=== PATIENT | female | born 1985 | race Two or more races ===

== ENCOUNTER 2025-02-05 10:57 | Observation (INO) | payer MEDICAID ==
[2025-02-05] MEDS ORDERED: METF-370 PO (12:39)
--- NOTE | 2025-02-05 12:41 | DVHDS2 ---
Physician Discharge Progress N Final Diagnosis: 31wks gdm Operations or Procedures: Operations or Procedures nst reactive reviwed,sono Condition on Discharge: Good Disposition: Home Discharge Instructions: Diet: Regular, Consistent carbohydrate Activity: No Restrictions, As Tolerated Medications: na Follow Up Care: Specialist: 4d Discharge Statement: "Patient was advised to return to the ER or call 911 if any headaches, dizziness, shortness of breath, chest pain, abdominal pain, bleeding, fevers, or worsening of medical condition. Patient was counseled about treatment plan, medications, possible side effects, patientverbalized understanding. All questions were answered to the best of my ability. This discharge took greater then 30 minutes in planning, reviewing documentation, counseling the patient, and discussing with other team members." Visit Coding OBGYN Date of Service: Feb 05, 2025 Billing Provider: NKECHI MORGAN DO ESCALATOR INSTALLER Common Visit Codes: [id number] OBS CARE (HIGH) ESCALATOR INSTALLER Procedure Codes: 93602-97- NON-STRESS TEST NKECHI MORGAN DO Feb 05, 2025 12:41
== END 2025-02-05 12:55 | disposition home or self-care (01) ==
LOC: LDRP 10:57
PROVIDERS: ADMIT Obstetrics & Gynecology; ATTEND Obstetrics & Gynecology
DX: O24.419 Gestational diabetes mellitus in pregnancy, unspecified control (principal); Z3A.31 31 weeks gestation of pregnancy; Z98.890 Other specified postprocedural states; Z79.899 Other long term (current) drug therapy
CPT/HCPCS: 59025; 81002; 82948; 82962; 94760; G0378

== ENCOUNTER 2025-02-09 08:49 | Observation (INO) | payer MEDICAID ==
[~2025-02-09 08:49] MED LIST: METF-370 PO
--- NOTE | 2025-02-09 09:50 | DVH ---
BIOPHYSICAL PROFILE HISTORY: GDMA2 TECHNIQUE: Multiple transabdominal real-time grayscale sonographic images through the gravid uterus of the fetus with duplex Doppler color flow and M-mode spectral analysis FINDINGS: BIOPHYSICAL PROFILE: breathing score: 2 movement score: 2 tone score: 2 Quantitative CAROLE score: 2 (CAROLE: 17.7 cm, mvp: 5.7 cm.) Total score: 8/8 The cervix Single live fetus in cephalic presentation. heart rate 127 beats per minute. Posterior Grade 2 placenta without previa or abruption Single live fetus at 32w3d Biophysical profile score 8/8 corresponding to an APARNA of 04/03/2025. Estimated weight not included. IMPRESSION: 1. Biophysical profile score: 8/8
--- NOTE | 2025-02-09 10:21 | DVHDS2 ---
Physician Discharge Progress N Final Diagnosis: 32wks gdm Operations or Procedures: Operations or Procedures nst reactive reviwed,sono Condition on Discharge: Good Disposition: Home Discharge Instructions: Diet: Consistent carbohydrate Activity: No Restrictions, As Tolerated Medications: na Follow Up Care: Specialist: 1w Discharge Statement: "Patient was advised to return to the ER or call 911 if any headaches, dizziness, shortness of breath, chest pain, abdominal pain, bleeding, fevers, or worsening of medical condition. Patient was counseled about treatment plan, medications, possible side effects, patientverbalized understanding. All questions were answered to the best of my ability. This discharge took greater then 30 minutes in planning, reviewing documentation, counseling the patient, and discussing with other team members." Visit Coding OBGYN Date of Service: Feb 09, 2025 Billing Provider: NKECHI MORGAN DO RN DIALYSIS Common Visit Codes: [id number] OBS CARE (HIGH) RN DIALYSIS Procedure Codes: 26173-00- NON-STRESS TEST NKECHI MORGAN DO Feb 09, 2025 10:21
== END 2025-02-09 10:21 | disposition home or self-care (01) ==
LOC: LDRP 08:49
PROVIDERS: ADMIT Obstetrics & Gynecology; ATTEND Obstetrics & Gynecology
DX: O24.419 Gestational diabetes mellitus in pregnancy, unspecified control (principal); Z3A.32 32 weeks gestation of pregnancy; Z98.890 Other specified postprocedural states
CPT/HCPCS: 59025; 76819; 81002; 82948; 82962; 94760; G0378

== ENCOUNTER 2025-02-13 04:53 | Observation (INO) | payer MEDICAID ==
--- NOTE | 2025-02-13 20:11 | DVH ---
BIOPHYSICAL PROFILE HISTORY: GDM A2 Comparison Study: US BIOPHYSICAL PROFILE on DOS: 02/09/25 TECHNIQUE: Multiple real-time grayscale sonographic images through the gravid uterus of the fetus with duplex Doppler color flow and M-mode spectral analysis FINDINGS: BIOPHYSICAL PROFILE: breathing score: 2 movement score: 2 tone score: 2 Quantitative CAROLE score: 2 (CAROLE: 18.5 Cm.) Total score: 8/8 The cervix is unremarkable Single live fetus in cephalic presentation. heart rate 121 beats per minute. Posterior placenta without previa or abruption IMPRESSION: Biophysical profile score: 8/
--- NOTE | 2025-02-13 20:37 | DVHDS2 ---
Physician Discharge Progress N Final Diagnosis: IUP at 33w 0d GDMA2 Advanced maternal Age Operations or Procedures: Operations or Procedures S: 39yo G2,1001, EDC 04/03/25, EGA 33w 0d presents to place for surveillance due to GDMA2. She is on Metformin. She reports normal movements, no UCs, no LOF, vaginal bleeding, GAY, vision changes or epigastric pain O: A&O x3 NAD. Afebrile, VSS Respiration: unlabored heart and lung sounds normal. Abdomen: Gravid, non-tender to palpation Extremities: No edema BPP 8/8 FHR baseline 125bpm, moderate variability with accelerations, no deceleration Tocometer: no contraction noted A: IUP at 33w 2days GDMA2 Normal Biophysical Profile Reactive NST P: > Continue Metformin and surveillance 2x/week > Keep scheduled OB follow up appointment; seek care sooner if needed > 3rd trimester emergency S&S FMC, PTL & pre-eclampsia precautions reviewed with pt; advised to seek health care if any symptom including but not limited to any of the above. Condition on Discharge: Good Disposition: Home Discharge Instructions: Diet: See Comment Diet comment: As advised for GDMA2 Activity: No Restrictions, As Tolerated Activity comment: Balance activities with rest periods Follow Up/Referral: Keep all scheduled appointments Medications: No new medication Follow Up Care: Discharge Statement: 3rd trimester emergency S&S FMC, PTL & pre-eclampsia precautions reviewed with pt; advised to seek health care if any symptom including but not limited to any of the above. "Patient was advised to return to the ER or call 911 if any headaches, dizziness, shortness of breath, chest pain, abdominal pain, bleeding, fevers, or worsening of medical condition. Patient was counseled about treatment plan, medications, possible side effects, patientverbalized understanding. All questions were answered to the best of my ability. This discharge took greater then 30 minutes in planning, reviewing documentation, counseling the patient, and discussing with other team members." Visit Coding OBGYN Date of Service: Feb 13, 2025 Billing Provider: TALYA GUERRA CNM BUTTONHOLE FACER Common Visit Codes: 56124-WPO/OBS SAME DATE (HIGH) BUTTONHOLE FACER Procedure Codes: 98366-76- NON-STRESS TEST TALYA GUERRA CNM Feb 13, 2025 20:37
== END 2025-02-13 20:42 | disposition home or self-care (01) ==
LOC: LDRP 19:03
PROVIDERS: ADMIT Obstetrics & Gynecology; ATTEND Obstetrics & Gynecology
DX: O24.419 Gestational diabetes mellitus in pregnancy, unspecified control (principal); O09.523 Supervision of elderly multigravida, third trimester; Z3A.33 33 weeks gestation of pregnancy; Z98.890 Other specified postprocedural states
CPT/HCPCS: 59025; 76819; 81002; 82948; 82962; A4649; G0378

== ENCOUNTER 2025-02-16 06:39 | Observation (INO) | payer MEDICAID ==
--- NOTE | 2025-02-16 12:08 | DVH ---
BIOPHYSICAL PROFILE HISTORY: GDMA2 TECHNIQUE: Multiple transabdominal real-time grayscale sonographic images through the gravid uterus of the fetus with duplex Doppler color flow and M-mode spectral analysis FINDINGS: BIOPHYSICAL PROFILE: breathing score: 2 movement score: 2 tone score: 2 Quantitative CAROLE score: 2 (CAROLE: 14.1 Cm.) Total score: 8 The cervix not well visualized. Single live fetus in cephalic presentation. heart rate 130 beats per minute. Grade 2 posterior placenta without abruption PCi is 2.3 cm from the placental tip. No evidence placental abruption. IMPRESSION: Biophysical profile score: 8 PCi is 2.3 cm from the placental tip. No evidence placental abruption.
--- NOTE | 2025-02-16 13:51 | DVHDS2 ---
Physician Discharge Progress N Final Diagnosis: testing for GDM, A2 Operations or Procedures: Operations or Procedures 39yo IUP@33.3wks VSS NST reactive FKC/PTL/PreE precautions reviewed. Dr. Reyes consulted, agrees with POC. Other Interventions Other Interventions [facility] [id number] [place] [address] Ph: [phone] DIAGNOSTIC IMAGING Diagnostic Imaging Report : [id number] Signed PATIENT: CRISTINA LEYT: [id number] UNIT: [id number] : 1985 LOC: [facility] ROOM / BED: TRIAGE1 / A AGE / SEX: 39 / F ADM STATUS: ADM IN SERVICE 110 ORDERING PHYSICIAN: AQUILINO HECTOR CNM PROCEDURE(s): BPP - BIOPHYSICAL PROFILE REASON: GDMA2 ORDER NUMBER(s): [id number], ACCESSION NUMBER(s): [id number] BIOPHYSICAL PROFILE HISTORY: GDMA2 TECHNIQUE: Multiple transabdominal real-time grayscale sonographic images through the gravid uterus of the fetus with duplex Doppler color flow and M-mode spectral analysis FINDINGS: BIOPHYSICAL PROFILE: breathing score: 2 movement score: 2 tone score: 2 Quantitative CAROLE score: 2 (CAROLE: 14.1 Cm.) Total score: 8 The cervix not well visualized. Single live fetus in cephalic presentation. heart rate 130 beats per minute. Grade 2 posterior placenta without abruption PCi is 2.3 cm from the placental tip. No evidence placental abruption. IMPRESSION: Biophysical profile score: 8 PCi is 2.3 cm from the placental tip. No evidence placental abruption. ATED BY: SY CARLOS MD DICTATED DATE/TIME: 02/16/251205 SIGNED BY: SY CARLOS MD SIGNED DATE/TIME: 02/16/251205 CC: Condition on Discharge: Stable Disposition: Home Discharge Instructions: Diet: Consistent carbohydrate Activity: See Comment Activity comment: pelvic rest Medications: see med list Follow Up Care: Specialist: f/u twice weekly Discharge Statement: "Patient was advised to return to the ER or call 911 if any headaches, dizziness, shortness of breath, chest pain, abdominal pain, bleeding, fevers, or worsening of medical condition. Patient was counseled about treatment plan, medications, possible side effects, patientverbalized understanding. All questions were answered to the best of my ability. This discharge took greater then 30 minutes in planning, reviewing documentation, counseling the patient, and discussing with other team members." Visit Coding OBGYN Date of Service: Feb 16, 2025 Billing Provider: AQUILINO HECTOR CNM CORPORATE COMMUNICATIONS SPECIALIST Common Visit Codes: [id number] OBS CARE (HIGH) CORPORATE COMMUNICATIONS SPECIALIST Procedure Codes: 21983-91- NON-STRESS TEST AQUILINO HECTOR CNM Feb 16, 2025 13:51
== END 2025-02-16 12:30 | disposition home or self-care (01) ==
LOC: LDRP 10:50
PROVIDERS: ADMIT Obstetrics & Gynecology; ATTEND Obstetrics & Gynecology
DX: O24.419 Gestational diabetes mellitus in pregnancy, unspecified control (principal); O09.523 Supervision of elderly multigravida, third trimester; Z3A.33 33 weeks gestation of pregnancy; Z98.890 Other specified postprocedural states
CPT/HCPCS: 59025; 76819; 81002; 82948; 82962; A4649; G0378

== ENCOUNTER 2025-02-19 05:30 | Observation (INO) | payer MEDICAID ==
--- NOTE | 2025-02-19 12:37 | DVH ---
BIOPHYSICAL PROFILE HISTORY: GDMA2 TECHNIQUE: Multiple transabdominal real-time grayscale sonographic images through the gravid uterus of the fetus with duplex Doppler color flow and M-mode spectral analysis FINDINGS: BIOPHYSICAL PROFILE: breathing score: 2 movement score: 2 tone score: 2 Quantitative CAROLE score: 2 (CAROLE: 21.2 cm, mvp: 8.1 cm.) Total score: 8/8 The cervix N/V Single live fetus in cephalic presentation. heart rate 132 beats per minute. Posterior Grade 2 placenta without previa or abruption Single live fetus at 33 weeks 6 days Biophysical profile score 8/8 corresponding to an APARNA of 04/13/2025 Estimated weight not given IMPRESSION: 1. Biophysical profile score: 8/8 2. FHR: 132 bpm
--- NOTE | 2025-02-19 17:58 | DVHDS2 ---
Physician Discharge Progress N Final Diagnosis: GDMA2 Secondary Diagnosis: Encounter for NST/BPP Operations or Procedures: Operations or Procedures PATIENT: STACIA LEY: [id number] UNIT: [id number] : 1985 LOC: [facility] ROOM / BED: [address] AGE / SEX: 39 / F ADM STATUS: ADM IN SERVICE 1043 ORDERING PHYSICIAN: RICCO JACOBS DO PROCEDURE(s): BPP - BIOPHYSICAL PROFILE REASON: GDMA2 ORDER NUMBER(s): [id number], ACCESSION NUMBER(s): [id number] BIOPHYSICAL PROFILE HISTORY: GDMA2 TECHNIQUE: Multiple transabdominal real-time grayscale sonographic images through the gravid uterus of the fetus with duplex Doppler color flow and M-mode spectral analysis FINDINGS: BIOPHYSICAL PROFILE: breathing score: 2 movement score: 2 tone score: 2 Quantitative CAROLE score: 2 (CAROLE: 21.2 cm, mvp: 8.1 cm.) Total score: 8/8 The cervix N/V Single live fetus in cephalic presentation. heart rate 132 beats per minute. Posterior Grade 2 placenta without previa or abruption Single live fetus at 33 weeks 6 days Biophysical profile score 8/8 corresponding to an APARNA of 04/13/2025 Estimated weight not given IMPRESSION: 1. Biophysical profile score: 8/8 2. FHR: 132 bpm ATED BY: ENRIQUE EDWARDS Jr., DO Condition on Discharge: Stable Disposition: Home Discharge Instructions: Diet: Consistent carbohydrate Activity: No Restrictions, As Tolerated Medications: NA Follow Up Care: Discharge Statement: "Patient was advised to return to the ER or call 911 if any headaches, dizziness, shortness of breath, chest pain, abdominal pain, bleeding, fevers, or worsening of medical condition. Patient was counseled about treatment plan, medications, possible side effects, patientverbalized understanding. All questions were answered to the best of my ability. This discharge took greater then 30 minutes in planning, reviewing documentation, counseling the patient, and discussing with other team members." Visit Coding OBGYN Date of Service: Feb 19, 2025 Billing Provider: GARIBALDI,RICCO G DO SPECIAL NEEDS NANNY Common Visit Codes: 19889-XNH/OBS SAME DATE (HIGH) SPECIAL NEEDS NANNY Procedure Codes: 57088-92- NON-STRESS TEST RICCO JACOBS DO Feb 19, 2025 17:58
== END 2025-02-19 12:12 | disposition home or self-care (01) ==
LOC: LDRP 10:00 → UNDOADMOB 10:00 → LDRP 10:44
PROVIDERS: ADMIT Obstetrics & Gynecology; ATTEND Obstetrics & Gynecology
DX: O24.419 Gestational diabetes mellitus in pregnancy, unspecified control (principal); Z3A.33 33 weeks gestation of pregnancy; Z98.890 Other specified postprocedural states
CPT/HCPCS: 59025; 76819; 81002; 82948; 82962; 94760; A4649; G0378

== ENCOUNTER 2025-02-23 06:23 | Observation (INO) | payer MEDICAID ==
[2025-02-23] MEDS ORDERED: PREN-96 PO (09:19)
--- NOTE | 2025-02-23 10:21 | DVH ---
CLINICAL HISTORY: GDMA2 COMPARISON: US BIOPHYSICAL PROFILE on DOS: 02/19/25, US BIOPHYSICAL PROFILE on DOS: 02/16/25, US BIOPHYSICAL PROFILE on DOS: 02/13/25 TECHNIQUE: biophysical profile was performed. Transabdominal sonographic images of the fetus were obtained. FINDINGS: The fetus is in cephalic position. heart rate measures 141 BPM. Amniotic fluid index measures 19.5 cm. The placenta is posterior in position without visualized evidence of previa or abruption. BPP profile is an overall score of 8/8, with 2/2 points for breathing, with at least one episode of breathing over a 30 second duration during a 30 minute observation, 2/2 points for movements, with 3 or more discrete body or limb movements, 2/2 points for tone, with one or more episodes of extremity extension with return to flexion, or opening and closing of hand, and 2/2 points for amniotic fluid, with at least 1 pocket of amniotic fluid that measures 2 cm in 2 perpendicular planes. IMPRESSION: BPP score of 8/8.
--- NOTE | 2025-02-23 15:19 | DVHDS2 ---
Physician Discharge Progress N Final Diagnosis: testing for GDM, A2 Operations or Procedures: Operations or Procedures 39yo IUP@34.3wks VSS NST reactive per RN FKC/PTL/preE precautions reviewed Dr. Reyes consulted, agrees with POC. Other Interventions Other Interventions [address] [address] Ph: [phone] DIAGNOSTIC IMAGING Diagnostic Imaging Report : [id number] Signed PATIENT: CRISTINA LEYT: [id number] UNIT: [id number] : 1985 LOC: [facility] ROOM / BED: TRIAGE2 / A AGE / SEX: 39 / F ADM STATUS: ADM IN SERVICE 4 ORDERING PHYSICIAN: AQUILINO HECTOR CNM PROCEDURE(s): BPP - BIOPHYSICAL PROFILE REASON: GDMA2 ORDER NUMBER(s): [id number], ACCESSION NUMBER(s): [id number] CLINICAL HISTORY: GDMA2 COMPARISON: US BIOPHYSICAL PROFILE on DOS: 02/19/25, US BIOPHYSICAL PROFILE on DOS: 02/16/25, US BIOPHYSICAL PROFILE on DOS: 02/13/25 TECHNIQUE: biophysical profile was performed. Transabdominal sonographic images of the fetus were obtained. FINDINGS: The fetus is in cephalic position. heart rate measures 141 BPM. Amniotic fluid index measures 19.5 cm. The placenta is posterior in position without visualized evidence of previa or abruption. BPP profile is an overall score of 8/8, with 2/2 points for breathing, with at least one episode of breathing over a 30 second duration during a 30 minute observation, 2/2 points for movements, with 3 or more discrete body or limb movements, 2/2 points for tone, with one or more episodes of extremity extension with return to flexion, or opening and closing of hand, and 2/2 points for amniotic fluid, with at least 1 pocket of amniotic fluid that measures 2 cm in 2 perpendicular planes. IMPRESSION: BPP score of 8/8. ATED BY: PASCALE CURIEL DO DICTATED DATE/TIME: 02/23/25 1019 SIGNED BY: PASCALE CURIEL DO SIGNED DATE/TIME: 02/23/25 1019 CC: Condition on Discharge: Stable Disposition: Home Discharge Instructions: Diet: Consistent carbohydrate Activity: No Restrictions, As Tolerated Medications: see med list Follow Up Care: Specialist: f/u twice weekly Discharge Statement: "Patient was advised to return to the ER or call 911 if any headaches, dizziness, shortness of breath, chest pain, abdominal pain, bleeding, fevers, or worsening of medical condition. Patient was counseled about treatment plan, medications, possible side effects, patientverbalized understanding. All questions were answered to the best of my ability. This discharge took greater then 30 minutes in planning, reviewing documentation, counseling the patient, and discussing with other team members." Visit Coding OBGYN Date of Service: Feb 23, 2025 Billing Provider: AQUILINO HECTOR CNM SENIOR COST ACCOUNTANT Common Visit Codes: [id number] OBS CARE (HIGH) SENIOR COST ACCOUNTANT Procedure Codes: 49824-32- NON-STRESS TEST AQUILINO HECTOR CNM Feb 23, 2025 15:18
== END 2025-02-23 10:42 | disposition home or self-care (01) ==
LOC: LDRP 09:10
PROVIDERS: ADMIT Obstetrics & Gynecology; ATTEND Obstetrics & Gynecology
DX: O24.419 Gestational diabetes mellitus in pregnancy, unspecified control (principal); O09.523 Supervision of elderly multigravida, third trimester; Z3A.34 34 weeks gestation of pregnancy; Z98.890 Other specified postprocedural states
CPT/HCPCS: 59025; 76819; 81002; 82948; 82962; 94760; A4649; G0378

== ENCOUNTER 2025-02-26 09:11 | Observation (INO) | payer MEDICAID ==
[~2025-02-26 09:11] MED LIST changes: +PREN-96 PO
--- NOTE | 2025-02-26 10:08 | DVH ---
BIOPHYSICAL PROFILE HISTORY: GDMA2 Comparison Study: US BIOPHYSICAL PROFILE on DOS: 02/23/25, US BIOPHYSICAL PROFILE on DOS: 02/19/25, US BIOPHYSICAL PROFILE on DOS: 02/16/25, US BIOPHYSICAL PROFILE on DOS: 02/13/25, US BIOPHYSICAL PROFILE on DOS: 02/09/25 TECHNIQUE: Multiple real-time grayscale sonographic images through the gravid uterus of the fetus with duplex Doppler color flow and M-mode spectral analysis FINDINGS: BIOPHYSICAL PROFILE: breathing score: 2 movement score: 2 tone score: 2 Quantitative CAROLE score: 2 (CAROLE: 18.11 Cm.) Total score: 8 The cervix is not visualized Single live fetus in cephalic presentation. heart rate 140.7 beats per minute. Posterior placenta without previa or abruption IMPRESSION: Biophysical profile score: 8
--- NOTE | 2025-02-26 12:46 | DVHDS2 ---
Physician Discharge Progress N Final Diagnosis: [id number] Operations or Procedures: Operations or Procedures nst reactive reviwed,sono Condition on Discharge: Good Disposition: Home Discharge Instructions: Diet: Consistent carbohydrate Activity: No Restrictions, As Tolerated Medications: na Follow Up Care: Specialist: 4d Discharge Statement: "Patient was advised to return to the ER or call 911 if any headaches, dizziness, shortness of breath, chest pain, abdominal pain, bleeding, fevers, or worsening of medical condition. Patient was counseled about treatment plan, medications, possible side effects, patientverbalized understanding. All questions were answered to the best of my ability. This discharge took greater then 30 minutes in planning, reviewing documentation, counseling the patient, and discussing with other team members." Visit Coding OBGYN Date of Service: Feb 26, 2025 Billing Provider: NKECHI MORGAN DO COMMUNICATIONS ELECTRICIAN SUPERVISOR Common Visit Codes: 62990-[id number] OBS CARE (HIGH) COMMUNICATIONS ELECTRICIAN SUPERVISOR Procedure Codes: 72562-24- NON-STRESS TEST NKECHI MORGAN DO Feb 26, 2025 12:46
== END 2025-02-26 10:30 | disposition home or self-care (01) ==
LOC: LDRP 09:11
PROVIDERS: ADMIT Obstetrics & Gynecology; ATTEND Obstetrics & Gynecology
DX: O24.419 Gestational diabetes mellitus in pregnancy, unspecified control (principal); Z3A.34 34 weeks gestation of pregnancy; Z98.890 Other specified postprocedural states
CPT/HCPCS: 59025; 76819; 81002; 82948; 82962; 94760; A4649; G0378

== ENCOUNTER 2025-03-02 08:00 | Observation (INO) | payer MEDICAID ==
--- NOTE | 2025-03-02 11:13 | DVH ---
BIOPHYSICAL PROFILE HISTORY: GDM/AMA Comparison Study: US BIOPHYSICAL PROFILE on DOS: 02/26/25, US BIOPHYSICAL PROFILE on DOS: 02/23/25, US BIOPHYSICAL PROFILE on DOS: 02/19/25, US BIOPHYSICAL PROFILE on DOS: 02/16/25, US BIOPHYSICAL PROFILE on DOS: 02/13/25 TECHNIQUE: Multiple real-time grayscale sonographic images through the gravid uterus of the fetus with duplex Doppler color flow and M-mode spectral analysis FINDINGS: BIOPHYSICAL PROFILE: breathing score: 2 movement score: 2 tone score: 2 Quantitative CAROLE score: 2 (CAROLE: 16.8 Cm.) Total score: 8 The cervix is not visualized Single live fetus in cephalic presentation. heart rate 128 beats per minute. Grade 2, posterior placenta without previa or abruption IMPRESSION: Biophysical profile score: 8
--- NOTE | 2025-03-02 14:48 | DVHDS2 ---
Physician Discharge Progress N Final Diagnosis: testing for AMA/GDM, A2 Operations or Procedures: Operations or Procedures 39yo IUP@35.3wks VSS NST reactive per RN FKC/PTL/preE precautions reviewed Dr. Reyes consulted, agrees with POC. Other Interventions Other Interventions [address] [address] Ph: [phone] DIAGNOSTIC IMAGING Diagnostic Imaging Report : [id number] Signed PATIENT: SHEA LEYACCT: [id number] UNIT: [id number] : 1985 LOC: [facility] ROOM / BED: TRIAGE3 / A AGE / SEX: 39 / F ADM STATUS: ADM IN SERVICE 1028 ORDERING PHYSICIAN: AQUILINO HECTOR CNM PROCEDURE(s): BPP - BIOPHYSICAL PROFILE REASON: GDM/AMA ORDER NUMBER(s): [id number], ACCESSION NUMBER(s): [id number] BIOPHYSICAL PROFILE HISTORY: GDM/AMA Comparison Study: US BIOPHYSICAL PROFILE on DOS: 02/26/25, US BIOPHYSICAL PROFILE on DOS: 02/23/25, US BIOPHYSICAL PROFILE on DOS: 02/19/25, US BIOPHYSICAL PROFILE on DOS: 02/16/25, US BIOPHYSICAL PROFILE on DOS: 02/13/25 TECHNIQUE: Multiple real-time grayscale sonographic images through the gravid uterus of the fetus with duplex Doppler color flow and M-mode spectral analysis FINDINGS: BIOPHYSICAL PROFILE: breathing score: 2 movement score: 2 tone score: 2 Quantitative CAROLE score: 2 (CAROLE: 16.8 Cm.) Total score: 8 The cervix is not visualized Single live fetus in cephalic presentation. heart rate 128 beats per minute. Grade 2, posterior placenta without previa or abruption IMPRESSION: Biophysical profile score: 8 ATED BY: JAN OLIVARES MD DICTATED DATE/TIME: 03/02/25 1111 SIGNED BY: JAN OLIVARES MD SIGNED DATE/TIME: 03/02/25 1111 CC: Condition on Discharge: Stable Disposition: Home Discharge Instructions: Diet: Consistent carbohydrate Activity: No Restrictions, As Tolerated Follow Up/Referral: as scheduled. Medications: see med list Follow Up Care: Specialist: f/u in 3days Discharge Statement: "Patient was advised to return to the ER or call 911 if any headaches, dizziness, shortness of breath, chest pain, abdominal pain, bleeding, fevers, or worsening of medical condition. Patient was counseled about treatment plan, medications, possible side effects, patientverbalized understanding. All questions were answered to the best of my ability. This discharge took greater then 30 minutes in planning, reviewing documentation, counseling the patient, and discussing with other team members." Visit Coding OBGYN Date of Service: Mar 02, 2025 Billing Provider: AQUILINO HECTOR CNM HOSE MENDER Common Visit Codes: [id number] OBS CARE (HIGH) HOSE MENDER Procedure Codes: 61390-72- NON-STRESS TEST AQUILINO HECTOR CNM Mar 02, 2025 14:48
== END 2025-03-02 11:39 | disposition home or self-care (01) ==
LOC: LDRP 10:19 → UNDOADMOB 10:19 → LDRP 10:29 → UNDODISOB 11:39
PROVIDERS: ADMIT Obstetrics & Gynecology; ATTEND Obstetrics & Gynecology
DX: O24.419 Gestational diabetes mellitus in pregnancy, unspecified control (principal); O09.523 Supervision of elderly multigravida, third trimester; Z3A.35 35 weeks gestation of pregnancy; Z98.890 Other specified postprocedural states
CPT/HCPCS: 59025; 76819; 81002; 82948; 82962; 94760; A4649; G0378

== ENCOUNTER 2025-03-05 06:20 | Observation (INO) | payer MEDICAID ==
--- NOTE | 2025-03-05 11:45 | DVH ---
CLINICAL HISTORY: Gestational diabetes. COMPARISON: US BIOPHYSICAL PROFILE on DOS: 03/02/25, US BIOPHYSICAL PROFILE on DOS: 02/26/25, US BIOPHYSICAL PROFILE on DOS: 02/23/25 TECHNIQUE: biophysical profile was performed. Transabdominal sonographic images of the fetus were obtained. FINDINGS: The fetus is in cephalic position. heart rate measures 130 BPM. Amniotic fluid index measures 17.2 cm. The placenta is posterior in position without visualized evidence of previa or abruption. BPP profile is an overall score of 8/8, with 2/2 points for breathing, with at least one episode of breathing over a 30 second duration during a 30 minute observation, 2/2 points for movements, with 3 or more discrete body or limb movements, 2/2 points for tone, with one or more episodes of extremity extension with return to flexion, or opening and closing of hand, and 2/2 points for amniotic fluid, with at least 1 pocket of amniotic fluid that measures 2 cm in 2 perpendicular planes. IMPRESSION: BPP score of 8/8.
[2025-03-05 12:39] LABS: Hematocrit 36.4 % (36.0-46.0); Hemoglobin 12.3 g/dL (12.2-16.2); Mean Corpuscular Hemoglobin 28.3 pg (28.0-32.0); Mean Corpuscular Volume 83.4 fL (80.0-100.0); Nucleated Red Blood Cells % 0.0 %
[2025-03-05 12:55] LABS: Urine Protein, UAD Negative (Negative)
[2025-03-05 12:56] LABS: Alanine Aminotransferase 26 U/L (7-40); Albumin 3.7 g/dL (3.2-4.8); Anion Gap 11 (5-15); BUN/Creatinine Ratio 15.8 (10.0-20.0); Bilirubin, Total 0.4 mg/dL (0.2-1.0); Calcium 8.9 mg/dL (8.7-10.4); Carbon Dioxide 20 mmol/L (20-31); Potassium 3.8 mmol/L (3.5-5.1); Sodium 139 mmol/L (136-145); Total Protein 6.9 g/dL (5.7-8.2); Uric Acid 4.2 mg/dL (3.1-7.8)
[2025-03-05 12:57] LABS: Alkaline Phosphatase 252 U/L (46-116); Blood Urea Nitrogen 6 mg/dL (9-23); Chloride 108 mmol/L (98-107); Glucose 65 mg/dL (74-106); INR 0.92 (0.9-1.15); Partial Thromboplastin Time 28.1 SEC (24.5-34.5); Prothrombin Time 9.8 sec (9.3-11.8)
[2025-03-05 13:07] LABS: Protein, Urine 16.6 mg/dL (1-14)
--- NOTE | 2025-03-06 07:10 | DVHDS2 ---
Physician Discharge Progress N Final Diagnosis: gdm,[id number] pih Operations or Procedures: Operations or Procedures nst reactive reviwed,sono Condition on Discharge: Good Disposition: Home Discharge Instructions: Diet: Consistent carbohydrate Activity: Light activity Medications: na Follow Up Care: Specialist: 3d Discharge Statement: "Patient was advised to return to the ER or call 911 if any headaches, dizziness, shortness of breath, chest pain, abdominal pain, bleeding, fevers, or worsening of medical condition. Patient was counseled about treatment plan, medications, possible side effects, patientverbalized understanding. All questions were answered to the best of my ability. This discharge took greater then 30 minutes in planning, reviewing d ocumentation, counseling the patient, and discussing with other team members." Visit Coding OBGYN Date of Service: Mar 05, 2025 Billing Provider: NKECHI MORGAN DO MACHINE SPRAYER Common Visit Codes: [id number] INP/OBS CARE (HIGH) MACHINE SPRAYER Procedure Codes: 04106-55- NON-STRESS TEST NKECHI MORGAN DO Mar 06, 2025 07:10
== END 2025-03-05 13:34 | disposition home or self-care (01) ==
LOC: LDRP 10:15
PROVIDERS: ADMIT Obstetrics & Gynecology; ATTEND Obstetrics & Gynecology
DX: O21.2 Late vomiting of pregnancy (principal); O24.419 Gestational diabetes mellitus in pregnancy, unspecified control; O26.893 Other specified pregnancy related conditions, third trimester; R51.9 Headache, unspecified; R79.1 Abnormal coagulation profile; Z98.890 Other specified postprocedural states; Z3A.35 35 weeks gestation of pregnancy
CPT/HCPCS: 36415; 59025; 76819; 80053; 81001; 81002; 82570; 82948; 82962; 84156; 84550; 85025; 85610; 85730; 94760; A4649; G0378

== ENCOUNTER 2025-03-08 13:02 | Observation (INO) | payer MEDICAID ==
[2025-03-08 14:36] LABS: Urine Protein, UAD Negative (Negative)
--- NOTE | 2025-03-08 14:42 | DVH ---
BIOPHYSICAL PROFILE HISTORY: ama/gdma2/r/o PIH TECHNIQUE: Multiple transabdominal real-time grayscale sonographic images through the gravid uterus of the fetus with duplex Doppler color flow and M-mode spectral analysis FINDINGS: BIOPHYSICAL PROFILE: breathing score: 2 movement score: 2 tone score: 2 Quantitative CAROLE score: 2 (CAROLE: 16.8 Cm.) Total score: 8/8 Single live fetus in cephalic presentation. heart rate 145 beats per minute. Grade 2 placenta without previa or abruption Biophysical profile score 8/8 corresponding to an APARNA of 04/03/2025 IMPRESSION: 1. Biophysical profile score: 8/
[2025-03-08 14:51] LABS: Protein, Urine 11.2 mg/dL (1-14); Protein, Urine 11.9 mg/dL (1-14)
[2025-03-08 15:36] LABS: 24 Hr. Total Protein, Urine 368.9 mg/24 Hr (<149.1); Urine Total Volume, 24 Hours 3100.0 mL
--- NOTE | 2025-03-08 19:08 | DVHDS2 ---
Physician Discharge Progress N Final Diagnosis: testing for GDM, A2/AMA Secondary Diagnosis: preeclampsia Operations or Procedures: Operations or Procedures 39yo IUP@36.2wks, Denies UCs/LOF/VB/GAY/vision changes/RUQ pain. Endorses +FM. VSS except mild HTN NST reactive per RN [facility]KC/PTL/preE precautions reviewed Dr. Reyes consulted, wants pt to f/u for NST/BPP twice weekly Laboratory Tests Test 03/08/25 12:00 03/08/25 15:20 Range/Units Urine Color Light-yellow Yellow Urine Clarity Clear Clear Urine pH 6.5 5.0-9.0 Urine Specific [place] 1.009 1.001-1.035 Urine Protein Negative Negative Urine Ketones Negative Negative Urine Blood Negative Negative /uL Urine Nitrite Negative Negative Urine Bilirubin Negative Negative Urine Urobilinogen Normal Negative mg/dL Urine Leukocyte Esterase Negative Negative /uL Urine RBC <1 0 - 4 /hpf Urine Microscopic WBC 1 0-5 /HPF Urine Squamous Epithelial Cells Few <5 /hpf Urine Bacteria Few H None Seen /hpf Urine Creatinine 35.00 30.0-125.0 mg/dL Urine Total Protein 24 Hour 368.9 <149.1 mg/24 Hr Urine Protein/Creatinine Ratio 0.32 Urine Glucose Normal Normal mg/dL Urine Total Protein 11.2 1-14 mg/dL POC Glucose 75 70-106 mg/dl Other Interventions Other Interventions [place] [id number] Ph: [phone] DIAGNOSTIC IMAGING Diagnostic Imaging Report : [id number] Signed PATIENT: SHEA LEYACCT: [id number] UNIT: [id number] : 1985 LOC: [facility] ROOM / [facility] / AGE / SEX: 39 / F ADM STATUS: ADM IN SERVICE 1350 ORDERING PHYSICIAN: AQUILINO HECTOR CNM PROCEDURE(s): BPP - BIOPHYSICAL PROFILE REASON: ama/gdma2/r/o PIH ORDER NUMBER(s): [id number], ACCESSION NUMBER(s): [id number] BIOPHYSICAL PROFILE HISTORY: ama/gdma2/r/o PIH TECHNIQUE: Multiple transabdominal real-time grayscale sonographic images through the gravid uterus of the fetus with duplex Doppler color flow and M-mode spectral analysis FINDINGS: BIOPHYSICAL PROFILE: breathing score: 2 movement score: 2 tone score: 2 Quantitative CAROLE score: 2 (CAROLE: 16.8 Cm.) Total score: 8/8 Single live fetus in cephalic presentation. heart rate 145 beats per minute. Grade 2 placenta without previa or abruption Biophysical profile score 8/8 corresponding to an APARNA of 04/03/2025 IMPRESSION: 1. Biophysical profile score: 8/ ATED BY: ARMAAN OH MD DICTATED DATE/TIME: 03/08/251439 SIGNED BY: ARMAAN OH MD SIGNED DATE/TIME: 03/08/251439 CC: Condition on Discharge: Stable Disposition: Home Discharge Instructions: Diet: Consistent carbohydrate, Cardiac 2g Na,low cholest Activity: No Restrictions, As Tolerated Medications: see med list Follow Up Care: Specialist: f/u in 3 days Discharge Statement: "Patient was advised to return to the ER or call 911 if any headaches, dizziness, shortness of breath, chest pain, abdominal pain, bleeding, fevers, or worsening of medical condition. Patient was counseled about treatment plan, medications, possible side effects, patientverbalized understanding. All questions were answered to the best of my ability. This discharge took greater then 30 minutes in planning, reviewing documentation, counseling the patient, and discussing with other team members." Visit Coding OBGYN Date of Service: Mar 08, 2025 Billing Provider: AQUILINO HECTOR CNM [employer]BE TEACHER Common Visit Codes: 69197-AQZJIPQ OBS CARE (HIGH) ABE TEACHER Procedure Codes: 33209-87- NON-STRESS TEST AQUILINO HECTOR CNM Mar 08, 2025 19:08
== END 2025-03-08 15:55 | disposition home or self-care (01) ==
LOC: LDRP 13:02
PROVIDERS: ADMIT Obstetrics & Gynecology; ATTEND Obstetrics & Gynecology
DX: O24.419 Gestational diabetes mellitus in pregnancy, unspecified control (principal); O14.93 Unspecified pre-eclampsia, third trimester; O09.523 Supervision of elderly multigravida, third trimester; Z3A.36 36 weeks gestation of pregnancy; Z98.890 Other specified postprocedural states
CPT/HCPCS: 59025; 76819; 81001; 81002; 82570; 82948; 82962; 84156; 94760; A4649; G0378

== ENCOUNTER 2025-03-12 15:12 | Observation (INO) | payer MEDICAID ==
[~2025-03-12] VITALS: Ht 157.5 cm; Wt 99.8 kg
--- NOTE | 2025-03-12 16:19 | DVH ---
BIOPHYSICAL PROFILE HISTORY: GDMA2 TECHNIQUE: Multiple transabdominal real-time grayscale sonographic images through the gravid uterus of the fetus with duplex Doppler color flow and M-mode spectral analysis FINDINGS: BIOPHYSICAL PROFILE: breathing score: 2 movement score: 2 tone score: 2 Quantitative CAROLE score: 2 (CAROLE: 18.2 cm. 6.2 cm.) Total score: 8/8 The cervix N/V Single live fetus in cephalic presentation. heart rate 127 beats per minute. Posterior Grade 2 placenta without previa or abruption Single live fetus at 36 weeks 6 days Biophysical profile score 8/8 corresponding to an APARNA of 04/03/2025 Estimated weight not calculated g IMPRESSION: 1. Biophysical profile score: 8/8.
[2025-03-12] MEDS ORDERED: NIFE10CA52 PO (16:50)
[2025-03-12] MEDS: TERBUTALINE SULFATE 1 MG/ML 1ML VIAL SC STA (17:03)
[2025-03-12] MEDS: NIFEdipine 10 MG CAP PO ONE (17:07)
[2025-03-12] MEDS: BETAMETHASONE ACET (30mg/5ml) 5ml Vial 6mg/ml IM ONE (17:35)
--- NOTE | 2025-03-13 05:36 | DVHDS2 ---
Physician Discharge Progress N Final Diagnosis: gdm 36wks Operations or Procedures: Operations or Procedures nst reactive reviwed,sono Other Interventions Other Interventions [place] Condition on Discharge: Good Disposition: Home Discharge Instructions: Diet: Consistent carbohydrate, Cardiac 2g Na,low cholest Activity: No Restrictions, As Tolerated Medications: na Follow Up Care: Specialist: 1d Discharge Statement: "Patient was advised to return to the ER or call 911 if any headaches, dizziness, shortness of breath, chest pain, abdominal pain, bleeding, fevers, or worsening of medical condition. Patient was counseled about treatment plan, medications, possible side effects, patientverbalized understanding. All questions were answered to the best of my ability. This discharge took greater then 30 minutes in planning, reviewing documentatio n, counseling the patient, and discussing with other team members." Visit Coding OBGYN Date of Service: Mar 12, 2025 Billing Provider: NKECHI MORGAN DO [employer]ARD Common Visit Codes: [id number] INP/OBS CARE (HIGH) [employer]ARD Procedure Codes: 62884-51- NON-STRESS TEST NKECHI MORGAN DO Mar 13, 2025 05:36
[2025-03-16] MEDS ORDERED: IBUP-1456 PO (18:16)
[2025-03-16] MEDS ORDERED: DOCU-94 PO (18:16)
[2025-03-16] MEDS ORDERED: HYDR-4072 PO (18:16)
== END 2025-03-12 18:35 | disposition home or self-care (01) ==
LOC: LDRP 15:12 → UNDOADMOB 15:12
PROVIDERS: ADMIT Obstetrics & Gynecology; ATTEND Obstetrics & Gynecology
DX: O24.419 Gestational diabetes mellitus in pregnancy, unspecified control (principal); Z3A.36 36 weeks gestation of pregnancy; Z98.890 Other specified postprocedural states
CPT/HCPCS: 59025; 76819; 81002; 82948; 82962; 94760; 96372; A4649; G0378; J0702; J3105

== ENCOUNTER 2025-03-13 11:03 | Observation (INO) | payer MEDICAID ==
[~2025-03-13] VITALS: Ht 162.6 cm; Wt 86.2 kg
[~2025-03-13 11:03] MED LIST changes: +NIFE10CA52 PO
[2025-03-13] MEDS: BETAMETHASONE ACET (30mg/5ml) 5ml Vial 6mg/ml IM ONE (18:01)
--- NOTE | 2025-03-15 08:03 | DVHDS2 ---
Physician Discharge Progress N Final Diagnosis: ptl,gdma2 Operations or Procedures: Operations or Procedures [place] Condition on Discharge: Good Disposition: Home Discharge Instructions: Diet: Regular, Consistent carbohydrate Activity: No Restrictions, As Tolerated Medications: na Follow Up Care: Specialist: 3d Discharge Statement: "Patient was advised to return to the ER or call 911 if any headaches, dizziness, shortness of breath, chest pain, abdominal pain, bleeding, fevers, or worsening of medical condition. Patient was counseled about treatment plan, medications, possible side effects, patientverbalized understanding. All questions were answered to the best of my ability. This discharge took greater then 30 minutes in planning, reviewing d ocumentation, counseling the patient, and discussing with other team members." Visit Coding OBGYN Date of Service: Mar 14, 2025 Billing Provider: NKECHI MORGAN DO [employer] WORKER Common Visit Codes: [id number] OBS CARE (HIGH) [employer] WORK[employer] Procedure Codes: 34007-92- NON-STRESS TEST NKECHI MORGAN DO Mar 15, 2025 08:03
[2025-03-16] MEDS ORDERED: IBUP-1456 PO (18:16)
[2025-03-16] MEDS ORDERED: DOCU-94 PO (18:16)
[2025-03-16] MEDS ORDERED: HYDR-4072 PO (18:16)
== END 2025-03-13 18:15 | disposition home or self-care (01) ==
LOC: LDRP 16:20
PROVIDERS: ADMIT Obstetrics & Gynecology; ATTEND Obstetrics & Gynecology
DX: O26.893 Other specified pregnancy related conditions, third trimester (principal); R51.9 Headache, unspecified; Z3A.37 37 weeks gestation of pregnancy; Z98.890 Other specified postprocedural states
CPT/HCPCS: 59025; 96372; G0378